=== PATIENT | female | born 1980 | race Caucasian/White ===

== ENCOUNTER 2017-04-16 05:52 | Day surgery (SDC) | payer OTHER ==
--- NOTE | 2017-03-24 10:12 | GHP ---
[f rep st] PREOP HISTORY AND PHYSICAL DATE OF PROCEDURE: 04/16/2017 PLANNED PROCEDURE: Laparoscopic bilateral salpingectomy. INDICATIONS: The patient is a 36-year-old, 1, para 1-0-0-1, who had a pelvic ultrasound done at [facility] for pelvic discomfort, and there was an incidental finding of the IUD possibly in the lower uterine segment , as well as a hemorrhagic cyst. Patient called the office at the time, and stated that her family status is definitively complete, and does not want to risk getting and having an IUD malpositioned, and so she requested a tubal ligation. Sterilization is not covered by her insurance, but patient does have an additional contraception policy. She started using condoms for control, until a repeat ultrasound was done to follow up on the hemorrhagic cyst, and we could arrange for her to have surgery. The cyst resolved and it was mentioned that the IUD was in the uterus, but not necessarily in the lower uterine segment. Patient presented to our office to have an official ultrasound done, which showed that the IUD is actually in the correct place, and there are no ovarian cysts. Patient would still like to proceed with the bilateral salpingectomy because she does not want to risk getting . Risks and benefits of the procedure have been reviewed with the patient, and patient has been properly consented. MEDICAL HISTORY: Benign heart murmur, anxiety. MEDICATIONS: Mirena, multivitamin, Zyrtec, probiotic, topical acne medicine. SURGICAL HISTORY: Multiple knee surgeries, tonsillectomy, ear tubes. ALLERGIES: Penicillin and cephalosporins cause hives, itching, and rash. Patient has an aversion and significant vomiting with [place] and Percocet. SOCIAL HISTORY: Patient works as a nurse. She denies tobacco or drug use. She does have a couple alcoholic beverages a week. FAMILY MEDICAL HISTORY: Noncontributory. PERIOPERATIVE NURSE HISTORY: Menarche age 13. She does have a Mirena IUD, so she has infrequent light menstrual periods. She is a 1, para 1-0-0-1. She did have a spontaneous vaginal delivery in August of 2009. Patient has a history of cryosurgery in 2003. Repeat Paps have been negative. REVIEW OF SYSTEMS: 10-point review of systems is negative. PHYSICAL EXAM: VITAL SIGNS: Stable. Her heart rate is regular. GENERAL APPEARANCE: She is alert and oriented x3. LUNGS: Clear to auscultation bilaterally. PSYCH: Unremarkable. Appropriate affect. ABDOMEN: Soft, nondistended, nontender. No organomegaly is noted. EXTREMITIES: Reveal no calf tenderness or edema. PELVIC: Reveals a mobile, mid position uterus with no adnexal masses. ASSESSMENT AND PLAN: 36-year-old, 1, para 1-0-0-1, with family status complete and a recent history of possible malpositioned intrauterine device. Patient does not want to have any risk of having a , so she would like to have a laparoscopic bilateral salpingectomy. She would like to leave her IUD in place for now for cycle control. Risks and benefits have been extensively reviewed with the patient, and the patient has been properly consented. The patient was given a prescription for scopolamine patch due to nausea after surgery, and a prescription for 2 mg of Dilaudid, and sublingual Zofran to manage her pain postoperatively. She was given a prescription at her preoperative visit. The patient has signed consent and will agree to proceed. /[id number]/MODL MTDD
[2017-04-16] MEDS ORDERED: SCOPOLAMINE HYDROBROMIDE 1.5 MG PATCH TD ONE (05:59)
[2017-04-16] MEDS ORDERED: SCOPOLAMINE HYDROBROMIDE 1 MG/3 DAYS PATCH TD ONE (06:23)
[2017-04-16] MEDS ORDERED: LIDOCAINE 1% 2 ML INJ ONE (06:23)
[2017-04-16] MEDS ORDERED: BUPIVACAINE 0.25% 30 ML SDV ONE (06:43)
[2017-04-16] MEDS ORDERED: SILVER NITRATE APPLICATOR 1 APPL TP ONE (06:43)
[2017-04-16] MEDS ORDERED: LIDOCAINE 1% 300 MG/30 ML SDV ONE (06:43)
[2017-04-16] MEDS ORDERED: MIDAZOLAM 2 MG/2 ML VIAL IVP ONE (06:55)
--- NOTE | 2017-04-16 06:55 | PDANEPAE ---
ANE History of Present Illness presents for bilateral salpingectomy ANE Past Medical History - Cardiovascular History Hx Hypertension: No Hx Arrhythmias: Yes Hx Chest Pain: No Hx Coronary Artery / Peripheral Vascular Disease: No Hx CHF / Valvular Disease: No Hx Palpitations: No Cardiovascular History Comment: poss mitral valve prolapse about 15 yrs, non- confirmed diagnosis. benign heart murmur - Pulmonary History Hx COPD: No Hx Asthma/Reactive Airway Disease: No Hx Recent Upper Respiratory Infection: No Hx Oxygen in Use at Home: No Hx Sleep Apnea: No Sleep Apnea Screening Result - Last Documented: Negative - Neurologic History Hx Cerebrovascular Accident: No Hx Seizures: No Hx Dementia: No - Endocrine History Hx Diabetes: No - Renal History Hx Renal Disorders: No - Liver History Hx Hepatic Disorders: No - Neurological & Psychiatric Hx Hx Neurological and Psychiatric Disorders: No - Cancer History Hx Cancer: No - Congenital Disorder History Hx Congenital Disorders: No - GI History Hx Gastrointestinal Disorders: No - Other Health History Other Health History: none - Chronic Pain History Chronic Pain: No - Surgical History Prior Surgeries: T&A as child. PE tubes as child. bilateral knee arthroscopies (multiple) ANE Review of Systems - Exercise capacity METS (RN): 5 METS ANE Patient History - Allergies Allergies/Adverse Reactions: Cephalosporins Allergy (Unknown, Verified 04/03/17 13:46) Rash hydrocodone [Hydrocodone] Allergy (Unknown, Verified 04/03/17 13:46) Vomiting oxycodone [Oxycodone] Allergy (Unknown, Verified 04/03/17 13:46) Vomiting penicillin G [Penicillin G] Allergy (Unknown, Verified 04/16/17 06:20) Rash - Home Medications Home medications: home medication list seen and reviewed Home Medications: Herbals/Supplements -Info Only 04/03/17 [Last Taken 1 Week Ago] ZYRTEC 04/03/17 [Last Taken 04/13/17] - NPO status NPO Since - Liquids (Date): 04/16/17 NPO Since - Liquids (Time): 02:15 NPO Since - Solids (Date): 04/15/17 NPO Since - Solids (Time): 21:00 - Anes Hx Anes Hx: post operative nausea - Smoking Hx Smoking Status: Never smoked - Family Anes Hx Family Hx Anesthesia Complications: none ANE Labs/Vital Signs - Vital Signs Blood Pressure: 113/80 Heart Rate: 96 Respiratory Rate: 16 O2 Sat (%): 100 Height: 172.72 cm Weight: 56.699 kg ANE Physical Exam - Airway Neck exam: FROM Mallampati Score: Class 1 Mouth exam: normal dental/mouth exam - Pulmonary Pulmonary: no respiratory distress - Cardiovascular Cardiovascular: regular rate and rhythym - ASA Status ASA Status: II ANE Anesthesia Plan Anesthesia Plan: general endotracheal anesthesia
[2017-04-16] MEDS ORDERED: fentaNYL 100 MCG/2 ML INJ ONE ×2 (07:00→08:26)
[2017-04-16] MEDS ORDERED: PROPOFOL 200 MG/20 ML VIAL ONE (07:00)
[2017-04-16] MEDS ORDERED: LIDOCAINE 2% 5 ML SDV ONE (07:02)
[2017-04-16] MEDS ORDERED: DEXAMETHASONE 4 MG/ML VIAL ONE (07:02)
[2017-04-16] MEDS ORDERED: ONDANSETRON 4 MG/2 ML VIAL ONE (07:02)
[2017-04-16] MEDS ORDERED: ROCURONIUM 50 MG/5 ML VIAL ONE (07:02)
[2017-04-16] MEDS ORDERED: KETOROLAC 30 MG/1 ML SDV ONE (07:02)
--- NOTE | 2017-04-16 07:11 | PDHPUP ---
History & Physical Update H&P update statement: This history and physical update is based on an assessment of the patient which was completed after admission or registration (within 24 hours), but prior to the surgery/procedure. H&P update: H&P reviewed & patient examined, no change in patient's condition since H&P completed
[2017-04-16] MEDS ORDERED: SUGAMMADEX SODIUM 200 MG/2 ML VIAL IVP ONE (07:29)
[2017-04-16] MEDS ORDERED: LR 1,000 ML IV ONE (07:49)
[2017-04-16] MEDS ORDERED: LIDOCAINE 1% 2 ML INJ ID PRN (07:49)
[2017-04-16] MEDS ORDERED: ACETAMINOPHEN 500 MG TAB PO PRN (07:53)
[2017-04-16] MEDS ORDERED: HYDROmorphONE/DILAUDID 1 MG/ML SYR IVP PRN (07:53)
[2017-04-16] MEDS ORDERED: ONDANSETRON 4 MG/2 ML VIAL IVP PRN (07:53)
[2017-04-16] MEDS ORDERED: METOCLOPRAMIDE 10 MG/2 ML VIAL IVP PRN (07:53)
[2017-04-16] MEDS ORDERED: PROMETHAZINE HCL 25 MG/ML INJ IVP PRN (07:53)
[2017-04-16] MEDS ORDERED: LR 500 ML IV PRN (07:53)
[2017-04-16] MEDS ORDERED: ALBUTEROL 3 ML DEYVIAL IH PRN (07:53)
[2017-04-16] MEDS ORDERED: NALOXONE HCL 0.4 MG/ML INJ IVP PRN (07:53)
[2017-04-16] MEDS: fentaNYL 100 MCG/2 ML INJ IVP PRN ×3 (08:28→08:57)
[2017-04-16 08:35] VITALS: PULSE 115
--- NOTE | 2017-04-16 08:43 | POSTANESTH ---
Post Anesthetic Evaluation Cardiovascular Status: Normal, Stable Respiratory Status: Normal, Stable Level of Consciousness/Mental Status: Can Participate in Eval Pain Control: Adequate, Prn Tx Ordered Nausea/Vomiting Control: Adequate, Prn Tx Ordered Complications Possibly Related to Anesthesia: None Noted
[2017-04-16] MEDS ORDERED: HYDROmorphONE/DILAUDID 2 MG TAB PO PRN (08:50)
[2017-04-16 09:02] VITALS: TEMP 97.7
[2017-04-16] MEDS ORDERED: HYDROmorphONE/DILAUDID 2 MG TAB ONE (09:04)
[2017-04-16 09:08] VITALS: RESP 23; O2SAT 99
[2017-04-16 10:07] VITALS: BP 106/67
[2017-04-17] MEDS ORDERED: PATCH REMOVAL 1 EA PATCH TD ONE (05:59)
--- NOTE | 2017-04-18 16:35 | GOP ---
[f rep st] OPERATIVE REPORT DATE OF OPERATION: 04/16/2017 SURGEON: Gloria Angel DO ANESTHESIA: General endotracheal tube. PREOPERATIVE DIAGNOSIS: Family status complete. POSTOPERATIVE DIAGNOSIS: Family status complete,plus adhesions on the right side of pelvis. PROCEDURE PERFORMED: Laparoscopic bilateral salpingectomies and lysis of adhesions on the right pel [place] sidewall. FINDINGS: 1. Exam under anesthesia: Mobile midposition uterus. No adnexal masses. 2. Laparoscopic findings: Normal ovaries, uterus and tubes. Normal-appearing liver and gallbladde r. Filmy adhesions between the right colon and the right pelvic sidewall. Normal-appearing appendi x. SPECIMENS: Bilateral fallopian tubes. ESTIMATED BLOOD LOSS: 10 cc. INDICATIONS: Patient is a 36-year-old 1, para 1-0-0-1, who had a recent scare of possible I UD being malpositioned. Patient's family status is complete and does not want to risk getting pregn ant, so she is requesting to have definitive therapy with bilateral salpingectomies. She has a Larisa na IUD in place which she would like to leave in place for period control for now, but requests ster ilization. Risks and benefits of the procedure were reviewed with the patient and the patient was p roperly consented. DESCRIPTION OF PROCEDURE: Patient was taken to the operating room with intravenous fluids in place. She was then placed on the operating room table in the dorsal supine position where general endotr acheal tube anesthesia was obtained. She was then repositioned into the dorsal lithotomy position w ith the [facility] stirrups and then prepped and draped in the normal sterile fashion. Exam under ane sthesia revealed a mobile and midpositioned uterus with no adnexal masses. The IUD string was palpa griffin. Uterine manipulator was not inserted so as to not dislodge the IUD. Attention was then turned to the patient's abdomen where a 5 mm skin incision was then made in the umbilicus. A 5 mm trocar was then advanced into the patient under direct visualization and the abdomen was then insufflated w ith CO2 gas until an adequate pneumoperitoneum was achieved. The area underneath the trocar inserti on site was explored and found to be unremarkable. The patient was then placed in steep Trendelenbu rg and a 5 mm skin incision was then made in the patient's left lower quadrant and a 5 mm trocar was then advanced into the patient's abdomen under direct visualization. A third 5 mm trocar was then placed in the patient's right lower quadrant under direct visualization. The uterus was unremarkabl e as were the ovaries and tubes. The upper abdomen was explored and found to be unremarkable. Ther e were adhesions noted in the right sidewall and the right appendix appeared to be unremarkable. Th e bilateral salpingectomies were performed with the LigaSure and the tubes were withdrawn through an d were handed off as specimen. The LigaSure device was then used to take down the adhesions of the colon and bowel to the sidewall. Care was taken to stay far away from the actual bowel and colon. The appendix was evaluated and found to be unremarkable and the colon and bowel were much freer afte r freeing up the adhesions. The operative site was noted to be hemostatic. The CO2 gas was then tu rned off and CO2 gas was expressed from the patient's abdomen. Instruments were then removed from t he patient's abdomen and the skin incisions were then closed with 4-0 Monocryl. The patient was loni aned and then returned to the dorsal supine position where she was easily awoken from anesthesia aft er sponge and needle counts were correct x2. The patient was recovered well. /[id number]/MODL
== END 2017-04-16 10:25 | disposition home or self-care (01) ==
LOC: FSGY 05:52
PROVIDERS: ATTEND Obstetrics & Gynecology
DX: Z30.2 Encounter for sterilization (principal); Z97.5 Presence of (intrauterine) contraceptive device
CPT/HCPCS: J1100; J1885; J2250; J2405; J2704; J3010